=== PATIENT | male | born 1950 | race African-American/Black ===

== ENCOUNTER 2016-09-20 19:57 | Emergency (ER) | payer OTHER ==
[~2016-09-20] VITALS: Ht 175.3 cm; Wt 93.6 kg
[~2016-09-20 19:57] MED LIST: INDERIDE 40/1 TABLET; NORVASC5 M1
[2016-09-20] MEDS ORDERED: PREDNISONE50 MG PO (22:55)
[2016-09-20] MEDS ORDERED: PERCOCET 5/31 TABLET PO (22:55)
[2016-09-20 23:45] VITALS: BP 134/91
== END 2016-09-20 23:53 | disposition home or self-care (01) ==
LOC: EME 19:57
DX: M17.11 Unilateral primary osteoarthritis, right knee (principal); I10 Essential (primary) hypertension; H91.90 Unspecified hearing loss, unspecified ear; Z88.6 Allergy status to analgesic agent; Z88.8 Allergy status to other drugs, medicaments and biological substances; Z91.013 Allergy to seafood
CPT/HCPCS: 73564; 99281; 99284; J1100; J1885

== ENCOUNTER 2016-10-29 13:04 | Emergency (ER) | payer OTHER ==
[~2016-10-29] VITALS: Ht 175.3 cm; Wt 95.6 kg
[~2016-10-29 13:04] MED LIST changes: +PERCOCET 5/31 TABLET PO; +PREDNISONE50 MG PO
[2016-10-29] MEDS ORDERED: INDOCIN50 MG PO (14:31)
[2016-10-29 14:39] VITALS: BP 129/74
== END 2016-10-29 14:40 | disposition home or self-care (01) ==
LOC: EME 13:04
DX: M10.9 Gout, unspecified (principal); H91.90 Unspecified hearing loss, unspecified ear; Z88.6 Allergy status to analgesic agent; Z88.8 Allergy status to other drugs, medicaments and biological substances; Z91.013 Allergy to seafood; Z87.891 Personal history of nicotine dependence
CPT/HCPCS: 73110; 99281; 99284